=== PATIENT | male | born 1995 ===

== ENCOUNTER 2016-07-12 13:30 | Emergency (ER) ==
--- NOTE | 2016-07-12 14:42 | REP ---
Clinical: Trauma. Technique: AP, lateral, bilateral oblique views left foot . Findings: The osseous structures and joint spaces are intact and normal. There is no evidence for acute fracture or dislocation. Surrounding soft tissues are unremarkable. No subcutaneous emphysema or radiodense foreign body. Impression: Normal examination. No acute fracture or dislocation. Signed by Neville Gonsales MD 07/12/2016 02:34 P
--- NOTE | 2016-07-12 14:43 | REP ---
Clinical: Trauma . Technique: AP, lateral, bilateral oblique views left ankle . Findings: No acute fracture or dislocation. Skeletal structures and joint spaces are intact and normal. Ankle mortise appears stable. No subcutaneous emphysema or radiodense foreign body. Impression: Normal left ankle radiograph series. No acute fracture or dislocation. Signed by Neville Gonsales MD 07/12/2016 02:35 P
--- NOTE | 2016-07-12 15:24 | EDDOCDS ---
Physician Documentation [facility] Name: Pollo Michael Age: 21 yrs Sex: Male : 1995 Arrival Date: 07/12/2016 Time: 13:30 Bed I10 / 23 Private MD: JEANE Caldwell Disposition: 07/12 15:02 A printed prescription for a controlled substance(s) was provided because [facility] is not able to accept EPCS. Disposition: 07/12/16 15:01 Discharged to Home/Self Care. Impression: Contusion of left foot. - Condition is Stable. - Discharge Instructions: Elastic Bandage and RICE, Foot Contusion. - Prescriptions for [place] 5- 325 mg Oral Tablet - take 1 tablet by ORAL route every 6 hours As needed MDD: 4 tabs; 20 tablet. - Medication Reconciliation, Local Pharmacy Hours form. - Follow up: JEANE Caldwell; When: 4 - 5 days; Reason: Recheck today's complaints, Continuance of care. - Problem is new. - Symptoms are unchanged. Historical: - Allergies: No known drug Allergies; - Home Meds: 1. none - PMHx: none; - PSHx: none; - Social history: Smoking status: Patient states was never smoker of tobacco. No barriers to communication noted, The patient speaks fluent Kyrgyz. - Family history: Not pertinent. - : The pt / caregiver states he / she is not on anticoagulants. Home medication list is obtained from the patient. - Exposure Risk Screening:: None identified. Vital Signs: 13:31 BP 158 / 90; Pulse 89; Resp 18; Temp 99.4(O); Pulse Ox 100% on R/A; Weight 77.11 kg / lr2 170 lbs (R); Height 5 ft. 10 in. (177.80 cm) (R); Pain 10/10; 13:31 Body Mass Index 24.39 (77.11 kg, 177.80 cm) lr2 MDM: 13:44 Foot, Complete Ordered. EDMS 13:44 Ankle, Complete Ordered. EDMS Signatures: Dispatcher [employer] EDGiovanna Jimenez, Slim De León RN, BANQUET MANAGER Janny Adam RN RN mk4 MTDD
--- NOTE | 2016-07-12 15:24 | EDDOCDS ---
Nurse's Notes [facility] [place] Name: Pollo Michael Age: 21 yrs Sex: Male : 1995 Arrival Date: 07/12/2016 Time: 13:30 Bed I10 / 23 Private MD: JEANE Caldwell Diagnosis: Contusion of left foot Presentation: 07/12 13:39 Presenting complaint: Patient states: he dropped a dryer on his left foot about 30 kcs minutes ago. Adult Sepsis Screening: The patient does not have new or worsening altered mentation. Patient's respiratory rate is less than 22. Systolic blood pressure is greater than 100. Patient has a qSOFA score of 0- Negative Sepsis Screen. Suicide/Homicide risk assessment- the patient denies having any suicidal and/or homicidal ideations and does not present with any other emotional, behavioral or mental health complaints. Status: The patient is an active duty technical services assistant. Transition of care: patient was not received from another setting of care. 13:39 Acuity: RAFAEL Level 4 kcs 13:39 Method Of Arrival: Wheelchair kcs Triage Assessment: 13:40 General: Appears comfortable, well developed, well nourished, well groomed, Behavior is kcs cooperative, pleasant. Pain: Location: left foot Pain currently is 10 out of 10 on a pain scale. 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 Neurological: Level of Consciousness is awake, alert. Respiratory: Airway is patent Respiratory effort is even, unlabored, Respiratory pattern is regular, symmetrical. Derm: Skin is intact, is healthy with good turgor, Skin is dry, Skin is normal. Historical: - Allergies: No known drug Allergies; - Home Meds: 1. none - PMHx: none; - PSHx: none; - Social history: Smoking status: Patient states was never smoker of tobacco. No barriers to communication noted, The patient speaks fluent Yemeni. - Family history: Not pertinent. - : The pt / caregiver states he / she is not on anticoagulants. Home medication list is obtained from the patient. - Exposure Risk Screening:: None identified. Screenin:20 Screening information is obtained from the patient. Fall risk: No risks identified. mk4 Assistance ADL's: requires no assistance with activities of daily living. Abuse/DV Screen: The patient / caregiver reports he/she is: not in a situation that causes fear, pain or injury. Nutritional screening: No deficits noted. Advance Directives: Currently, there is no health care proxy. There is no active DNR order. There is no living will. There is no Power of Mangle Roll Operator. home support is adequate. Assessment: 15:20 General: Appears in no apparent distress, texting on phone , swelling present to dorsum mk4 of left foot , no bony deformity. Musculoskeletal: Circulation, motion, and sensation intact Capillary refill < 3 seconds in left toes. Vital Signs: 13:31 BP 158 / 90; Pulse 89; Resp 18; Temp 99.4(O); Pulse Ox 100% on R/A; Weight 77.11 kg lr2 (R); Height 5 ft. 10 in. (177.80 cm) (R); Pain 10/10; 13:31 Body Mass Index 24.39 (77.11 kg, 177.80 cm) lr2 Vitals: 13:31 Log In Time: July 12, 2016 at 13:30. lr2 ED Course: 13:31 Patient visited by Geovanna Shipman. lr2 13:31 Patient moved to Waiting lr2 13:33 Paulette [facility] is Private Physician. lr2 13:33 Patient moved to Pre RCE lr2 13:40 Triage Initiated kcs 14:48 Patient moved to I10 / 23 ms18 14:48 Foot, Complete Returned. EDMS 14:48 Ankle, Complete Returned. EDMS 14:49 [facility] ke 14:49 Patient visited by Slim Solis FNP. ke 14:49 Patient visited by Slim Solis FNP. ke 15:01 Paulette [facility] is Referral Physician. ke 15:20 The patient / caregiver is instructed regarding the plan of care and ED course. mk4 15:20 No IV's were initiated during this patient's visit. No procedures done that require mk4 assistance. Galen wrap to left foot. Patient has positive distal pulse, brisk capillary refill, and positive sensation after application. Crutch training done. Order Results: Radiology Order: Foot, Complete Test: Foot, Complete REASON FOR EXAMINATION: Trauma; Clinical: Trauma.; ; Technique: AP, lateral, bilateral oblique views left foot .; ; Findings: The osseous structures and joint spaces are intact and normal. There; is no evidence for acute fracture or dislocation. Surrounding soft tissues are; unremarkable. No subcutaneous emphysema or radiodense foreign body.; ; Impression:; Normal examination. No acute fracture or dislocation.; ; ; Signed by; Neville Gonsales MD 07/12/2016 02:34 P; Radiology Order: Ankle, Complete Test: Ankle, Complete REASON FOR EXAMINATION: Trauma; Clinical: Trauma .; ; Technique: AP, lateral, bilateral oblique views left ankle .; ; Findings: No acute fracture or dislocation. Skeletal structures and joint; spaces are intact and normal. Ankle mortise appears stable. No subcutaneous; emphysema or radiodense foreign body.; ; Impression:; Normal left ankle radiograph series. No acute fracture or dislocation.; ; ; Signed by; Neville Gonsales MD 07/12/2016 02:35 P; Outcome: 15:01 Discharge ordered by Provider. ke 15:20 Discharge Assessment: Patient awake, alert and oriented x 3. No cognitive and/or mk4 functional deficits noted. Patient verbalized understanding of disposition instructions. Patient awake and alert. Discharge Assessment: patient administered narcotics - no. The following High Risk Discharge criteria are identified: None. Condition: good Condition: stable. No special radiology studies were completed. Property sent home with patient. 15:23 Patient left the ED. mk4 Signatures: Dispatcher [employer] EDMS Giovanna Duncan, RN RN Slim Valdez FNP FNP ke King, Margaret, RN RN mk4 Alexandria Varghese RN RN msGeovanna Perdomo MADY
--- NOTE | 2016-07-14 16:24 | EDDOCDS ---
Physician Documentation [facility] Name: Pollo Michael Age: 21 yrs Sex: Male : 1995 Arrival Date: 07/12/2016 Time: 13:30 Bed I10 / 23 Private MD: JEANE Caldwell Disposition: 07/12 15:02 A printed prescription for a controlled substance(s) was provided because [facility] is not able to accept EPCS. Disposition: 07/12/16 15:01 Discharged to Home/Self Care. Impression: Contusion of left foot. - Condition is Stable. - Discharge Instructions: Elastic Bandage and RICE, Foot Contusion. - Prescriptions for [place] 5- 325 mg Oral Tablet - take 1 tablet by ORAL route every 6 hours As needed MDD: 4 tabs; 20 tablet. - Medication Reconciliation, Local Pharmacy Hours form. - Follow up: JEANE Caldwell; When: 4 - 5 days; Reason: Recheck today's complaints, Continuance of care. - Problem is new. - Symptoms are unchanged. Historical: - Allergies: No known drug Allergies; - Home Meds: 1. none - PMHx: none; - PSHx: none; - Social history: Smoking status: Patient states was never smoker of tobacco. No barriers to communication noted, The patient speaks fluent Faroese. - Family history: Not pertinent. - : The pt / caregiver states he / she is not on anticoagulants. Home medication list is obtained from the patient. - Exposure Risk Screening:: None identified. Vital Signs: 13:31 BP 158 / 90; Pulse 89; Resp 18; Temp 99.4(O); Pulse Ox 100% on R/A; Weight 77.11 kg / lr2 170 lbs (R); Height 5 ft. 10 in. (177.80 cm) (R); Pain 10/10; 13:31 Body Mass Index 24.39 (77.11 kg, 177.80 cm) lr2 MDM: 13:44 Foot, Complete Ordered. EDMS 13:44 Ankle, Complete Ordered. EDMS 07/13 12:22 T-Sheet-- Draft Copy was scanned into [employer] and attached to record. gb Signatures: Dispatcher [employer] EDGiovanna Jimenez RN RN Rossy Willett, Reg Reg gb Slim Solis, PHARMACY INFORMATICS SPECIALIST PHARMACY INFORMATICS SPECIALIST Janny Powell, RN RN mk4 The chart was reviewed and I authenticate all verbal orders and agree with the evaluation and treatment provided.Attachments: 12:22 T-Sheet-- Draft Copy gb Chart Complete MTDD
--- NOTE | 2016-07-14 16:24 | EDDOCDS ---
Physician Documentation [facility] Name: Pollo Michael Age: 21 yrs Sex: Male : 1995 Arrival Date: 07/12/2016 Time: 13:30 Bed I10 / 23 Private MD: JEANE Caldwell Disposition: 07/12 15:02 A printed prescription for a controlled substance(s) was provided because [facility] is not able to accept EPCS. Disposition: 07/12/16 15:01 Discharged to Home/Self Care. Impression: Contusion of left foot. - Condition is Stable. - Discharge Instructions: Elastic Bandage and RICE, Foot Contusion. - Prescriptions for [place] 5- 325 mg Oral Tablet - take 1 tablet by ORAL route every 6 hours As needed MDD: 4 tabs; 20 tablet. - Medication Reconciliation, Local Pharmacy Hours form. - Follow up: JEANE Caldwell; When: 4 - 5 days; Reason: Recheck today's complaints, Continuance of care. - Problem is new. - Symptoms are unchanged. Historical: - Allergies: No known drug Allergies; - Home Meds: 1. none - PMHx: none; - PSHx: none; - Social history: Smoking status: Patient states was never smoker of tobacco. No barriers to communication noted, The patient speaks fluent Setswana. - Family history: Not pertinent. - : The pt / caregiver states he / she is not on anticoagulants. Home medication list is obtained from the patient. - Exposure Risk Screening:: None identified. Vital Signs: 13:31 BP 158 / 90; Pulse 89; Resp 18; Temp 99.4(O); Pulse Ox 100% on R/A; Weight 77.11 kg / lr2 170 lbs (R); Height 5 ft. 10 in. (177.80 cm) (R); Pain 10/10; 13:31 Body Mass Index 24.39 (77.11 kg, 177.80 cm) lr2 MDM: 13:44 Foot, Complete Ordered. EDMS 13:44 Ankle, Complete Ordered. EDMS 07/13 12:22 T-Sheet-- Draft Copy was scanned into [employer] and attached to record. gb Signatures: Dispatcher MedHo EDGiovanna Jimenez RN RN Rossy Willett, Reg Reg gb Slim Solis, TILE SORTER TILE SORTER Janny Powell, RN RN mk4 The chart was reviewed and I authenticate all verbal orders and agree with the evaluation and treatment provided.Attachments: 12:22 T-Sheet-- Draft Copy gb Chart Complete MTDD
--- NOTE | 2016-07-14 16:25 | EDDOCDS ---
Nurse's Notes [facility] Name: Pollo Michael Age: 21 yrs Sex: Male : 1995 Arrival Date: 07/12/2016 Time: 13:30 Bed I10 / 23 Private MD: JEANE Caldwell Diagnosis: Contusion of left foot Presentation: 07/12 13:39 Presenting complaint: Patient states: he dropped a dryer on his left foot about 30 kcs minutes ago. Adult Sepsis Screening: The patient does not have new or worsening altered mentation. Patient's respiratory rate is less than 22. Systolic blood pressure is greater than 100. Patient has a qSOFA score of 0- Negative Sepsis Screen. Suicide/Homicide risk assessment- the patient denies having any suicidal and/or homicidal ideations and does not present with any other emotional, behavioral or mental health complaints. 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 13:39 Acuity: RAFAEL Level 4 kcs 13:39 Method Of Arrival: Wheelchair kcs Triage Assessment: 13:40 General: Appears comfortable, well developed, well nourished, well groomed, Behavior is kcs cooperative, pleasant. Pain: Location: left foot Pain currently is 10 out of 10 on a pain scale. 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 Neurological: Level of Consciousness is awake, alert. Respiratory: Airway is patent Respiratory effort is even, unlabored, Respiratory pattern is regular, symmetrical. Derm: Skin is intact, is healthy with good turgor, Skin is dry, Skin is normal. Historical: - Allergies: No known drug Allergies; - Home Meds: 1. none - PMHx: none; - PSHx: none; - Social history: Smoking status: Patient states was never smoker of tobacco. No barriers to communication noted, The patient speaks fluent Swiss. - Family history: Not pertinent. - : The pt / caregiver states he / she is not on anticoagulants. Home medication list is obtained from the patient. - Exposure Risk Screening:: None identified. Screenin:20 Screening information is obtained from the patient. Fall risk: No risks identified. mk4 Assistance ADL's: requires no assistance with activities of daily living. Abuse/DV Screen: The patient / caregiver reports he/she is: not in a situation that causes fear, pain or injury. Nutritional screening: No deficits noted. Advance Directives: Currently, there is no health care proxy. There is no active DNR order. There is no living will. There is no Power of Checker Loader. home support is adequate. Assessment: 15:20 General: Appears in no apparent distress, texting on phone , swelling present to dorsum mk4 of left foot , no bony deformity. Musculoskeletal: Circulation, motion, and sensation intact Capillary refill < 3 seconds in left toes. Vital Signs: 13:31 BP 158 / 90; Pulse 89; Resp 18; Temp 99.4(O); Pulse Ox 100% on R/A; Weight 77.11 kg lr2 (R); Height 5 ft. 10 in. (177.80 cm) (R); Pain 10/10; 13:31 Body Mass Index 24.39 (77.11 kg, 177.80 cm) lr2 Vitals: 13:31 Log In Time: July 12, 2016 at 13:30. lr2 ED Course: 13:31 Patient visited by Geovanna Shipman. lr2 13:31 Patient moved to Waiting lr2 13:33 Paulette [facility] is Private Physician. lr2 13:33 Patient moved to Pre RCE lr2 13:40 Triage Initiated kcs 14:48 Patient moved to I10 / 23 ms18 14:48 Foot, Complete Returned. EDMS 14:48 Ankle, Complete Returned. EDMS 14:49 [facility] ke 14:49 Patient visited by Slim Solis FNP. ke 14:49 Patient visited by Slim Solis FNP. ke 15:01 Paulette [facility] is Referral Physician. ke 15:20 The patient / caregiver is instructed regarding the plan of care and ED course. mk4 15:20 No IV's were initiated during this patient's visit. No procedures done that require mk4 assistance. Galen wrap to left foot. Patient has positive distal pulse, brisk capillary refill, and positive sensation after application. Crutch training done. 07/13 12:22 T-Sheet-- Draft Copy was scanned into [employer] and attached to record. gb Order Results: Radiology Order: Foot, Complete Test: Foot, Complete REASON FOR EXAMINATION: Trauma; Clinical: Trauma.; ; Technique: AP, lateral, bilateral oblique views left foot .; ; Findings: The osseous structures and joint spaces are intact and normal. There; is no evidence for acute fracture or dislocation. Surrounding soft tissues are; unremarkable. No subcutaneous emphysema or radiodense foreign body.; ; Impression:; Normal examination. No acute fracture or dislocation.; ; ; Signed by; Neville Gonsales MD 07/12/2016 02:34 P; Radiology Order: Ankle, Complete Test: Ankle, Complete REASON FOR EXAMINATION: Trauma; Clinical: Trauma .; ; Technique: AP, lateral, bilateral oblique views left ankle .; ; Findings: No acute fracture or dislocation. Skeletal structures and joint; spaces are intact and normal. Ankle mortise appears stable. No subcutaneous; emphysema or radiodense foreign body.; ; Impression:; Normal left ankle radiograph series. No acute fracture or dislocation.; ; ; Signed by; Neville Gonsales MD 07/12/2016 02:35 P; Outcome: 07/12 15:01 Discharge ordered by Provider. jose maria 15:20 Discharge Assessment: Patient awake, alert and oriented x 3. No cognitive and/or mk4 functional deficits noted. Patient verbalized understanding of disposition instructions. Patient awake and alert. Discharge Assessment: patient administered narcotics - no. The following High Risk Discharge criteria are identified: None. Condition: good Condition: stable. No special radiology studies were completed. Property sent home with patient. 15:23 Patient left the ED. mk4 Signatures: Dispatcher MedHost EDMS Giovanna Duncan RN RN kcs Barnhardt, Gloria, Reg Reg Slim Clemens, COPY EDITOR COPY EDITOR Janny Powell RN RN mk4 Alexandria Varghese RN RN msGeovanna Perdomo Chart Complete MTDD
== END 2016-07-12 15:23 | disposition home or self-care (01) ==
LOC: M ED 13:30
DX: S90.32XA Contusion of left foot, initial encounter (principal); W22.8XXA Striking against or struck by other objects, initial encounter; Y92.018 Other place in single-family (private) house as the place of occurrence of the external cause; Y93.89 Activity, other specified; Y99.8 Other external cause status